=== PATIENT | female | born 1975 | race African-American/Black ===

== ENCOUNTER → 2016-08-04 | Outpatient (CLI) | payer OTHER ==
--- NOTE | ~2016-08-04 | US5 ---
[facility] RADIOLOGY TEXT RESULTS PATIENT: ALVA HOBSON LOCATION: [facility] : 75 UNIT #: [id number] AGE: [address]: CHANELLE RODRÍGUEZ MD SEX: F ORDER DR: [id number] [facility] [address] [place], [place] [address] [id number] O MR#: [id number] Acc #: [id number] NAME: ALVA HOBSON : 1975 SEX: F STUDY DATE/TIME: 08/04/2016 10:50 UNIT: [facility] ROOM: STUDY DESCRIPTION: US Abdominal Complete Attending Physician: Chanelle Rodríguez M.D. Referring Physician: Chanelle Rodríguez M.D. Ordering Physician: Chanelle Rodríguez M.D. Primary Care Physician: Chanelle Rodríguez M.D. MEDICAL IMAGING REPORT This report is preliminary unless electronic signature is present EXAM Abdominal ultrasound INDICATIONS Elevated liver enzyme levels. Abdominal pain for the past year. PROCEDURE Stark-scale and Doppler imaging of the abdomen. COMPARISON: None FINDINGS Pancreas is obscured by bowel gas. Liver measures 16.4 cm. Homogeneous echotexture. The right kidney measures 9.9 cm. No hydronephrosis. The common duct measures 3 mm. Submitted images of the abdominal aorta unremarkable. The aorta is not well seen. IVC is not well seen. Left kidney measures 10.9 cm. No hydronephrosis. Spleen measures 8.4 cm. IMPRESSION Previous cholecystectomy. No acute findings are seen in the abdomen. Note that the aorta, IVC and pancreas are mostly obscured by bowel gas. Dictated by... Petar Hood M.D. THIS IS AN ELECTRONICALLY VERIFIED REPORT Petar Hood M.D. at 08/04/2016 4:52 PM JOLENE/alissa TD: 08/04/2016 15:06 JOB #: [id number] [facility] A Service of [facility] RADIOLOGY TEXT RESULTS PATIENT: ALVA HOBSON [facility] #: [id number] : 75 UNIT #: [id number] AGE: [address]: CHANELLE RODRÍGUEZ MD SEX: F ORDER DR: MEDICAL IMAGING REPORT COPY
== END | disposition home or self-care (01) ==
LOC: CGUS 10:21
DX: R94.5 Abnormal results of liver function studies (principal); Z90.49 Acquired absence of other specified parts of digestive tract
CPT/HCPCS: 76700